=== PATIENT | male | born 1975 | race Caucasian/White ===

== ENCOUNTER 2022-03-07 09:12 | Outpatient (CLI) | payer OTHER, SELFPAY ==
[2022-03-07 09:41] LABS: Hematocrit 49.6 % (37.0-53.0); Mean Corpuscular HGB Conc 36 gm/dL (32-36); Mean Corpuscular Hemoglobin 33 pg (26-34); Mean Corpuscular Volume 90 fL (80-100); Platelet Count* 180 K/uL (140-440); Red Blood Count 5.52 m/uL (4.30-5.90); White Blood Count* 5.06 K/uL (4.50-11.00)
[2022-03-07 09:43] LABS: Slide Review Reflex No
[2022-03-07 09:47] LABS: Hemoglobin A1C* 5.5 % (0-5.6)
[2022-03-07 13:26] LABS: Chloride* 100 mmol/L (96-114)
[2022-03-07 13:27] LABS: Albumin* 4.9 g/dL (3.3-5.0); Sodium* 138 mmol/L (135-149)
[2022-03-07 13:28] LABS: Potassium* 4.6 mmol/L (3.6-5.1)
[2022-03-07 13:30] LABS: Alkaline Phosphatase* 64 U/L (40-150); Aspartate Amino Transferase* 33 U/L (12-35); Bilirubin Total* 0.7 mg/dL (0.1-1.5); Blood Urea Nitrogen* 23 mg/dL (5-24); Carbon Dioxide* 28 mmol/L (20-32); Cholesterol* 196 mg/dL (90-199); Creatinine* 1.2 mg/dL (0.5-1.5); Estimated Glomerular Filt Rate 75 ml/min; Glucose* 119 mg/dL (60-115); Total Protein* 7.4 g/dL (6.0-8.3)
[2022-03-07 13:31] LABS: Alanine Aminotransferase* 43 U/L (4-50); Calcium* 9.8 mg/dL (8.4-10.6); HDL Cholesterol* 34 mg/dL (>=40); LDL Cholesterol Calculated 94 mg/dL (<100); Triglycerides* 341 mg/dL (40-149)
== END 2022-03-07 09:13 | disposition home or self-care (01) ==
PROVIDERS: PCP Family Medicine; Visit Provider Family Medicine
DX: Z00.00 Encounter for general adult medical examination without abnormal findings (principal); E78.1 Pure hyperglyceridemia; I10 Essential (primary) hypertension; E66.01 Morbid (severe) obesity due to excess calories
CPT/HCPCS: 80053; 80061; 83036; 85027

== ENCOUNTER 2023-04-11 08:47 | Outpatient (CLI) | payer BC, SELFPAY | END 2023-04-11 08:48 | disposition home or self-care (01) | PROVIDERS: PCP Family Medicine; Visit Provider Family Medicine | DX: Z00.00 Encounter for general adult medical examination without abnormal findings (principal); I10 Essential (primary) hypertension; E78.1 Pure hyperglyceridemia | CPT/HCPCS: 80053; 80061; 82043; 82570 ==

== ENCOUNTER 2024-03-31 07:33 | Outpatient (CLI) | payer BC, SELFPAY | END 2024-03-31 07:34 | disposition home or self-care (01) | LOC: NFLDREF 04-03 06:41 | PROVIDERS: PCP Physician Assistant Medical; Referring Provider Physician Assistant Medical; Visit Provider Physician Assistant Medical | DX: Z00.00 Encounter for general adult medical examination without abnormal findings (principal); I10 Essential (primary) hypertension; E78.1 Pure hyperglyceridemia; Z12.5 Encounter for screening for malignant neoplasm of prostate | CPT/HCPCS: 80053; 80061; 84443; G0103 ==

== ENCOUNTER 2024-07-03 07:29 | Outpatient (CLI) | payer BC, SELFPAY | END 2024-07-03 07:30 | disposition home or self-care (01) | LOC: NFLDREF 07-09 03:02 | PROVIDERS: PCP Physician Assistant Medical; Referring Provider Physician Assistant Medical; Visit Provider Physician Assistant Medical | DX: E78.1 Pure hyperglyceridemia (principal) | CPT/HCPCS: 80061; 84450; 84460 ==

== ENCOUNTER 2025-04-10 07:34 | Outpatient (CLI) | payer BC, SELFPAY | END 2025-04-10 07:35 | disposition home or self-care (01) | LOC: NFLDREF 04-18 15:39 | PROVIDERS: PCP Physician Assistant Medical; Referring Provider Physician Assistant Medical; Visit Provider Physician Assistant Medical | DX: I10 Essential (primary) hypertension (principal); E78.1 Pure hyperglyceridemia | CPT/HCPCS: 80053; 80061; 84443; G0103 ==

== ENCOUNTER 2025-05-04 09:58 | Outpatient (CLI) | payer BC, SELFPAY ==
--- NOTE | 2025-05-04 11:10 | P.ANES_ITS ---
Anesthesia Charges Start Date/Time Anesthesia Start Date: 05/04/25 Anesthesia Start Time: 10:41 Stop Date/Time Anesthesia Stop Date: 05/04/25 Anesthesia Stop Time: 11:08 Coding CPT Codes CPT Codes: ROMIE LWR INTST NDSC NOS - [id number] ([id number]) P2 - PATIENT W/MILD SYST DISEASE, QK - BEAD WIRE INSULATOR 2-4 CNCRNT ANES PROC, QX - IT ANALYST SVC W/ MD MED DIRECTION
--- NOTE | 2025-05-04 11:10 | W.ANESCHARGE ---
Anesthesia Charges Start Date/Time Anesthesia Start Date: 05/04/25 Anesthesia Start Time: 10:41 Stop Date/Time Anesthesia Stop Date: 05/04/25 Anesthesia Stop Time: 11:08 Coding CPT Codes CPT Codes: ROMIE LWR INTST NDSC NOS - [id number] ([id number]) P2 - PATIENT W/MILD SYST DISEASE, QK - BLUEPRINTING AND PHOTOCOPY SUPERVISOR 2-4 CNCRNT ANES PROC, QX - COIL CONNECTOR REPAIRER SVC W/ MD MED DIRECTION
--- NOTE | 2025-05-04 11:17 | P.ANES_ITS ---
Anesthesia Charges Start Date/Time Anesthesia Start Date: 05/04/25 Anesthesia Start Time: 10:41 Stop Date/Time Anesthesia Stop Date: 05/04/25 Anesthesia Stop Time: 11:08 Coding CPT Codes CPT Codes: ROMIE LWR INTST NDSC NOS - [id number] ([id number]) QK - DATA ENTRY EMAIL PROCESSOR 2-4 CNCRNT ROMIE PROC, QX - FINAL ASSEMBLY WORKER SVC W/ MD MED DIRECTION, P2 - PATIENT W/MILD SYST DISEASE
--- NOTE | 2025-05-04 11:17 | W.ANESCHARGE ---
Anesthesia Charges Start Date/Time Anesthesia Start Date: 05/04/25 Anesthesia Start Time: 10:41 Stop Date/Time Anesthesia Stop Date: 05/04/25 Anesthesia Stop Time: 11:08 Coding CPT Codes CPT Codes: ROMIE LWR INTST NDSC NOS - [id number] ([id number]) QK - PRODUCTION ADMINISTRATOR 2-4 CNCRNT ROMIE PROC, QX - LAB AIDE SVC W/ MD MED DIRECTION, P2 - PATIENT W/MILD SYST DISEASE
== END 2025-05-04 09:59 | disposition home or self-care (01) ==
LOC: OP CLINIC 09:59
PROVIDERS: PCP Physician Assistant Medical; Visit Provider Internal Medicine
DX: Z12.11 Encounter for screening for malignant neoplasm of colon (principal); D12.3 Benign neoplasm of transverse colon; D12.5 Benign neoplasm of sigmoid colon
CPT/HCPCS: 00811; 00812; 45380; J2704